=== PATIENT | female | born 1950 | race Caucasian/White ===

== ENCOUNTER 2018-10-19 12:53 | Emergency (ER) | payer OTHER, MEDICARE ==
[~2018-10-19] VITALS: Ht 152.4 cm; Wt 68.0 kg
[2018-10-19 13:00] VITALS: BP_SYST 146
--- NOTE | 2018-10-19 13:06 | NUR ---
Patient triaged and placed in waiting room. VSS and patient appears in no acute distress at this time. Accompanied by family, awaiting available bed, and MD notified of need for MSE.
[2018-10-19] MEDS ORDERED: MORPHINE 4 MG/ML INJ. SYRINGE IVP ONE (14:00)
[2018-10-19] MEDS ORDERED: ONDANSETRON HCL 4 MG/2 ML VIAL IVP ONE (14:00)
--- NOTE | 2018-10-19 14:43 | NUR ---
Patient to ER bed 03 to gown for evaluation. Side rails up.
[2018-10-19 14:54] LABS: BASOPHILS % (AUTO) 0.7 % (0.0-2.0); EOSINOPHILS # (AUTO) 0.1 K/uL (0.0-0.4); EOSINOPHILS % (AUTO) 1.5 % (0.0-4.0); HEMOGLOBIN 14.8 g/dL (12.0-16.0); LYMPHOCYTES % (AUTO) 50.5 % (20.5-51.5); MEAN CORPUSCULAR HEMOGLOBIN 27 pg (27-31); MEAN CORPUSCULAR HGB CONC 33 % (32-36); MEAN CORPUSCULAR VOLUME 82 fL (79.0-98.0); MONOCYTES # (AUTO) 0.3 K/uL (0.0-1.0); NEUTROPHILS # (AUTO) 1.6 K/uL (1.8-7.7); NEUTROPHILS % (AUTO) 39.3 % (40.0-70.0); PLATELET COUNT (AUTO) 337 K/uL (130-430); RED CELL DISTRIBUTION WIDTH 13.1 % (9.0-15.0)
[2018-10-19 14:57] LABS: CALCIUM 10.2 mg/dL (8.4-11.0); CREATININE 1.05 mg/dL (0.55-1.30); POTASSIUM 3.9 mmol/L (3.5-5.1)
[2018-10-19 15:01] LABS: ALBUMIN 4.2 g/dL (3.4-4.8); PROTHROMBIN TIME 10.3 SECS (9.5-12.5); TOTAL BILIRUBIN 0.4 mg/dL (0.0-1.0)
[2018-10-19 15:27] LABS: BILIRUBIN,URINE NEGATIVE (NEGATIVE); BLOOD, URINE NEGATIVE (NEGATIVE); CLARITY/URINE CLEAR (CLEAR); COLOR,URINE YELLOW (YELLOW); GLUCOSE,URINE NEGATIVE (NEGATIVE); KETONES,URINE TRACE (NEGATIVE); LEUKOCYTE ESTERASE ,URINE 1+ (NEGATIVE); NITRITE, URINE NEGATIVE (NEGATIVE); PH,URINE 5.5 (5.0-8.0); PROTEIN URINE NEGATIVE (NEGATIVE); UROBILINOGEN,URINE 0.2 (0.2-1.0)
[2018-10-19 15:36] LABS: BACTERIA,URINE MODERATE /HPF (None Seen); MUCUS,URINE 1+ /LPF (None Seen); RBC,URINE 0-3 /HPF (0-3)
[2018-10-19 16:27] VITALS: BP_SYST 128
[2018-10-19] MEDS ORDERED: NACL 0.9% 1,000 ML IV ONE (17:00)
--- NOTE | 2018-10-19 17:37 | NUR ---
Patient given written and verbal discharge instructions and verbalizes understanding. ER MD discussed with patient the results and treatment provided. Patient in stable condition. ID arm band removed. IV catheter removed intact and dressing applied, no active bleeding. Rx of LOMOTIL,TYLENOL,ZOFRAN,LEVAQUIN given. Patient educated on pain management and to follow up with PMD. Pain Scale . Opportunity for questions provided and answered. Medication side effect fact sheet provided.
== END 2018-10-19 17:39 | disposition home or self-care (01) ==
LOC: SED 12:53
DX: N39.0 Urinary tract infection, site not specified (principal); K52.9 Noninfective gastroenteritis and colitis, unspecified
CPT/HCPCS: 36415; 71045; 80053; 81000; 82150; 82550; 83605; 83690; 84484; 85025; 85610; 85730; 87040; 87086; 93005; 96361; 96374; 96375; 99284; J2270; J2405; J7040

== ENCOUNTER 2020-04-23 16:42 | Emergency (ER) | payer OTHER, BC, SELFPAY ==
[~2020-04-23] VITALS: Ht 157.5 cm; Wt 90.7 kg
[2020-04-23 16:42] VITALS: BP_SYST 161
--- NOTE | 2020-04-23 16:45 | NUR ---
Patient triaged and placed in Surge Tent. VSS and patient appears in no acute distress at this time. Awaiting available bed, and MD notified of need for MSE.
--- NOTE | 2020-04-23 16:46 | NUR ---
Patient came from home for evaluation of COVID-19 symptoms. Patient reports having a subjective fever and diarrhea since last night.
--- NOTE | 2020-04-23 17:50 | NUR ---
ER Dr. Swan at bedside examining patient.
[2020-04-23 18:00] VITALS: BP_SYST 161
--- NOTE | 2020-04-23 18:00 | NUR ---
Patient given written and verbal discharge instructions and verbalizes understanding. ER MD discussed with patient the results and treatment provided. Patient in stable condition. ID arm band removed. Rx of lomotil,zofran given. Patient educated on pain management and to follow up with PMD. Pain Scale 0/10. Opportunity for questions provided and answered. Medication side effect fact sheet provided.
--- NOTE | 2020-04-27 05:33 | NUR ---
CRITICAL RESULT COVID POSITIVE LEFT MESSAGED FOR INFECTIOUS CONTROL NURSE
== END 2020-04-23 18:00 | disposition home or self-care (01) ==
LOC: SED 16:42
DX: U07.1 COVID-19 (principal)
CPT/HCPCS: 99283; C9803; U0003

== ENCOUNTER 2020-06-03 10:45 | Emergency (ER) | payer OTHER, BC, SELFPAY ==
--- NOTE | 2020-06-03 11:08 | NUR ---
Patient left without being seen.
== END 2020-06-03 11:08 | disposition left against medical advice (07) ==
LOC: SED 10:45
DX: Z20.828 Contact with and (suspected) exposure to other viral communicable diseases (principal); Z53.21 Procedure and treatment not carried out due to patient leaving prior to being seen by health care provider